=== PATIENT | male | born 1965 | race Asian ===

== ENCOUNTER → 2016-07-21 | Outpatient (CLI) | payer MEDICAID ==
[~2016-07-21] MED LIST: CARV12.530 PO; LEVO100T4 PO; UNK MEDS PO
== END | disposition home or self-care (01) ==
LOC: RADPV 09:57
PROVIDERS: ATTEND Internal Medicine Cardiovascular Disease
DX: I50.1 Left ventricular failure, unspecified (principal); I08.3 Combined rheumatic disorders of mitral, aortic and tricuspid valves; I34.8 Other nonrheumatic mitral valve disorders; I51.89 Other ill-defined heart diseases
CPT/HCPCS: 93306